=== PATIENT | female | born 1960 | race Asian ===

== ENCOUNTER 2017-05-25 12:41 | Emergency (ER) | payer OTHER ==
[~2017-05-25] VITALS: Ht 165.1 cm; Wt 46.0 kg
[2017-05-25 12:50] VITALS: Ht 165.1 cm; Wt 46.0 kg
[2017-05-25 15:54] LABS: ADD UMIC NO; UR ASCORBIC ACID 40 mg/dL (NEGATIVE); UR BILIRUBIN (Dip) NEGATIVE (NEGATIVE); UR BLOOD (Dip) NEGATIVE (NEGATIVE); UR CLARITY CLEAR (CLEAR); UR COLOR YELLOW (YELLOW); UR GLUCOSE (Dip) NEGATIVE (NEGATIVE); UR KETONES (Dip) 1+ mg/dL (NEGATIVE); UR LEUKOCYTE ESTERASE (Dip) NEGATIVE Leu/ul (NEGATIVE); UR NITRITE (Dip) NEGATIVE (NEGATIVE); UR SPECIFIC GRAVITY (Dip) 1.014 (1.003-1.030); UR TOTAL PROTEIN (Dip) NEGATIVE (NEGATIVE); UR UROBILINOGEN (Dip) NEGATIVE (NEGATIVE)
[2017-05-25 16:07] LABS: ADD SCAN DIFF NO
[2017-05-25 16:10] LABS: BASOPHILS % 0.3 % (0.0-2.0); HEMOGLOBIN 14.5 g/dl (12.0-16.0); LYMPHOCYTES % 14.2 % (15.0-51.0); MEAN CORPUSCULAR VOLUME 91.1 fl (82.0-101.0); MONOCYTE # 0.4 10^3/ul (0.3-0.9); MONOCYTES % 6.2 % (0.0-11.0); NEUTROPHIL # 5.5 10^3/ul (1.6-7.5); NEUTROPHILS % 79.2 % (39.0-77.0); PLATELET COUNT 284 10^3/UL (140-415); RED BLOOD COUNT 4.83 10^6/ul (4.20-5.40); RED CELL DISTRIBUTION WIDTH 12.4 % (11.5-14.5); WHITE BLOOD COUNT 6.9 10^3/ul (4.8-10.8)
[2017-05-25 16:28] LABS: ALBUMIN 5.4 g/dl (3.3-4.9); ALBUMIN/GLOBULIN RATIO 1.42; BILIRUBIN,INDIRECT 0.5 mg/dl (0-1.1); BILIRUBIN,TOTAL 0.5 mg/dl (0.2-1.3); CALCIUM 10.1 mg/dl (8.4-10.2); CREATININE 0.82 mg/dl (0.44-1.00); POTASSIUM 3.6 mmol/L (3.5-5.1); TOTAL PROTEIN 9.2 g/dl (6.1-8.1)
[2017-05-25] MEDS ORDERED: SOD CHLORIDE 0.9% 100 ML ONE (17:19)
[2017-05-25] MEDS ORDERED: IOHEXOL 300MG/ML 150 ML BTL ONE (17:19)
[2017-05-25] MEDS ORDERED: IBUP400T22 PO (17:37)
--- NOTE | 2017-05-25 17:41 | ERD ---
ER Documentation Chief Complaint Date/Time DATE: 05/25/17 TIME: 17:38 Chief Complaint ABD PAIN WITH DIARRHEA SINCE MARCH HPI This is a 56-year-old female presents to the ER with generalized abdominal pain since March. Patient states that she feels uncomfortable and pain is intermittent. Patient denies any fevers or chills. She denies any nausea vomiting or diarrhea. Patient states she usually constipated however she has been drinking a lot of juices and she now has soft stools. Patient denies any urinary frequency or dysuria. She does have a past medical history of hypertension. ROS 12 point review of systems was done, all negative except per HPI. Medications Home Meds Active Scripts Ibuprofen* (Motrin*) 400 Mg Tab, 400 MG PO Q6, #30 TAB Prov:SHIKHA SELLERS Brian 05/25/17 Allergies Allergies: Coded Allergies: No Known Allergy (Unverified , 05/25/17) PMhx/Soc Medical and Surgical Hx: pt denies Medical Hx, pt denies Surgical Hx Hx Alcohol Use: No Hx Substance Use: No Hx Tobacco Use: No Smoking Status: Never smoker Physical Exam Vitals Vital Signs Date Time Temp Pulse Resp B/P Pulse Ox O2 Delivery O2 Flow Rate FiO2 05/25/17 12:50 98.7 112 18 179/84 99 Physical Exam GENERAL: The patient is well developed and appropriate for usual state of health , in no apparent distress. HEENT: Atraumatic. CHEST: Clear to auscultation bilaterally. There are no rales, wheezes or rhonchi. HEART: Regular rate and rhythm. No murmurs, clicks, rubs or gallops. ABDOMEN: Soft, nontender and nondistended. Good bowel sounds. No rebound or guarding. No gross peritonitis. No gross organomegaly or masses. No Fitzgerald sign or McBurney point tenderness. Patient's abdominal aorta is palpable and is pulsating it is about 5 cm. BACK: No midline or flank tenderness. NEURO: Alert and oriented. Result Diagram: 05/25/17 1551 05/25/17 1551 Results 24 hrs Laboratory Tests Test 05/25/17 15:42 05/25/17 15:51 Urine Color YELLOW Urine Clarity CLEAR Urine pH 6.0 Urine Specific [place] 1.014 Urine Ketones 1+mg/dL Urine Nitrite NEGATIVEmg/dL Urine Bilirubin NEGATIVEmg/dL Urine Urobilinogen NEGATIVEmg/dL Urine Leukocyte Esterase NEGATIVELeu/ul Urine Hemoglobin NEGATIVEmg/dL Urine Glucose NEGATIVEmg/dL Urine Total Protein NEGATIVEmg/dl White Blood Count 6.910^3/ul Red Blood Count 4.8310^6/ul Hemoglobin 14.5g/dl Hematocrit 44.0% Mean Corpuscular Volume 91.1fl Mean Corpuscular Hemoglobin 30.0pg Mean Corpuscular Hemoglobin Concent 33.0g/dl Red Cell Distribution Width 12.4% Platelet Count 68796^3/UL Mean Platelet Volume 9.0fl Neutrophils % 79.2% Lymphocytes % 14.2% Monocytes % 6.2% Eosinophils % 0.0% Basophils % 0.3% Nucleated Red Blood Cells % 0.0/100WBC Neutrophils # 5.510^3/ul Lymphocytes # 1.010^3/ul Monocytes # 0.410^3/ul Eosinophils # 0.010^3/ul Basophils # 0.010^3/ul Nucleated Red Blood Cells # 0.010^3/ul Sodium Level 136mmol/L Potassium Level 3.6mmol/L Chloride Level 97mmol/L Carbon Dioxide Level 28mmol/L Anion Gap 15 Blood Urea Nitrogen 13mg/dl Creatinine 0.82mg/dl Glucose Level 118mg/dl Calcium Level 10.1mg/dl Total Bilirubin 0.5mg/dl Direct Bilirubin 0.00mg/dl Indirect Bilirubin 0.5mg/dl Aspartate Amino Transf (AST/SGOT) 29IU/L Alanine Aminotransferase (ALT/SGPT) 28IU/L Alkaline Phosphatase 72IU/L Total Protein 9.2g/dl Albumin 5.4g/dl Globulin 3.80g/dl Albumin/Globulin Ratio 1.42 Lipase 100U/L Current Medications Medications (Trade) Dose Ordered Sig/Elizabeth Route PRN Reason Start Time Stop Time Status Last Admin Dose Admin IV Flush 10 ml 10 ml STK-MED ONCE .ROUTE 05/25/17 17:19 05/25/17 17:20 DC Sodium Chloride (NS) 100 ml @ ud STK-MED ONCE .ROUTE 05/25/17 17:19 05/25/17 17:20 DC Iohexol (Omnipaque 300mg/ ml) 150 ml STK-MED ONCE .ROUTE 05/25/17 17:19 05/25/17 17:20 DC Procedures/MDM Differential Diagnosis: GERD, gastritis, peptic ulcer disease, pancreatitis, cholecystitis, choledocholithiasis, biliary colic, cholangitis, Memb-[id number] , ACS/DE, Pnuemonia, AAA, aortic dissection. This is a 56-year-old female presents to the ER with abdominal pain since March. On physical examination patient's abdominal aorta is palpable, therefore CT with contrast was ordered. I am awaiting CT results. Departure Diagnosis: Primary Impression: Abdominal pain Condition: Stable Patient Instructions: Abdominal Pain Referrals: TONO ALMONTE (PCP) Additional Instructions: Call your primary care doctor TOMORROW for an appointment during the next 1-2 days.See the doctor sooner or return here if your condition worsens before your appointment time. SIHKHA SELLERS May 25, 2017 17:41
[2017-05-25] MEDS ORDERED: TYL500 PO (17:42)
[2017-05-25] MEDS ORDERED: FAMO-96 PO (17:42)
--- NOTE | 2017-05-25 18:05 | RADRPT ---
PROCEDURE: CT abdomen and pelvis with intravenous contrast. CLINICAL INDICATION: Abdominal Pain TECHNIQUE: Following intravenous contrast, spiral CT of the abdomen pelvis was performed and is re constructed at 2.5 mm contiguous axial intervals from the dome of the diaphragm to the inferior pubi c rami. Computer reformatted coronal and sagittal images are included. CT D I 8 millicurie Dose 349 millicurie per centimeter COMPARISON: None. FINDINGS: Lung bases are clear of any infiltrate or mass. There is no effusion. The liver is of normal size, contour and attenuation with no mass or intrahepatic ductal dilatation. No gallstones are present. No splenic, adrenal or pancreatic abnormalities present. Kidneys excrete contrast symmetrically. No hydronephrosis, calculus or masses present. Ureters are of normal course and caliber with no stone. No bladder mass or stone is present. Uterus and ovaries are normal. No bowel mass or obstruction is seen. Appendix is normal. There is no phlegmon, ascites or pneumop eritoneum. No aneurysm is detected. There is no adenopathy. The osseous structures are intact. IMPRESSION: No evidence of urolithiasis, obstructive uropathy, diverticulitis or appendicitis. .Micah Valadez MD, MD Date Time Electronically viewed and signed by .Micah Valadez MD, on 05/25/2017 18:04 .A/
--- NOTE | 2017-05-25 18:15 | QN ---
Documentation Comment PROCEDURE: CT abdomen and pelvis with intravenous contrast. CLINICAL INDICATION: Abdominal Pain TECHNIQUE: Following intravenous contrast, spiral CT of the abdomen pelvis was performed and is reconstructed at 2.5 mm contiguous axial intervals from the dome of the diaphragm to the inferior pubic rami. Computer reformatted coronal and sagittal images are included. CT D I 8 millicurie Dose 349 millicurie per centimeter COMPARISON: None. FINDINGS: Lung bases are clear of any infiltrate or mass. There is no effusion. The liver is of normal size, contour and attenuation with no mass or intrahepatic ductal dilatation. No gallstones are present. No splenic, adrenal or pancreatic abnormalities present. Kidneys excrete contrast symmetrically. No hydronephrosis, calculus or masses present. Ureters are of normal course and caliber with no stone. No bladder mass or stone is present. Uterus and ovaries are normal. No bowel mass or obstruction is seen. Appendix is normal. There is no phlegmon , ascites or pneumoperitoneum. No aneurysm is detected. There is no adenopathy. The osseous structures are intact. IMPRESSION: No evidence of urolithiasis, obstructive uropathy, diverticulitis or appendicitis. .Micah Valadez MD, MD Date Time Electronically viewed and signed by .Micah Valadez MD, MD on 05/25/2017 18: 04 Patient presents with abdominal pain of uncertain etiology without evidence of appendicitis, aortic disease, diabetes, acute abdomen, obstruction, additional emergent causes of presenting complaints. She will be treated with Pepcid Tylenol and primary care follow-up. She will also be given instructions to return to ER for new or worsening symptoms as directed. ARIANNA MODI MD May 25, 2017 18:14
== END 2017-05-25 18:30 | disposition home or self-care (01) ==
LOC: FTE 12:41
DX: R10.84 Generalized abdominal pain (principal)
CPT/HCPCS: 36415; 74177; 80053; 81003; 83690; 85025; Q9967; Z7502; Z7610